=== PATIENT | female | born 1970 | race Caucasian/White ===

== ENCOUNTER 2018-05-18 19:48 | Emergency (ER) | payer BC ==
[~2018-05-18] VITALS: Ht 175.3 cm; Wt 103.0 kg
[2018-05-18] MEDS ORDERED: SYNTHROID200 MCG PO (20:02)
[2018-05-18] MEDS ORDERED: HYDROCHLOROTH12.5 M1 PO (20:02)
[2018-05-18] MEDS ORDERED: PHENTERMINE HCL15 MG PO (20:03)
[2018-05-18] MEDS ORDERED: K-TAB ER20 MEQ PO (20:04)
[2018-05-18] MEDS ORDERED: SINGULAIR10 MG PO (20:04)
== END 2018-05-18 21:12 | disposition home or self-care (01) ==
LOC: ED 19:48
DX: S93.601A Unspecified sprain of right foot, initial encounter (principal); Z88.0 Allergy status to penicillin; Z88.2 Allergy status to sulfonamides; Z91.040 Latex allergy status; Z88.8 Allergy status to other drugs, medicaments and biological substances; Z79.899 Other long term (current) drug therapy; Z98.890 Other specified postprocedural states; W10.9XXA Fall (on) (from) unspecified stairs and steps, initial encounter
CPT/HCPCS: 73610; 99283